=== PATIENT | female | born 1985 | race Caucasian/White ===

== ENCOUNTER 2017-04-04 12:13 | Day surgery (SDC) | payer BC ==
[2017-04-04] MEDS ORDERED: Iohexol 240 (50 ml) ONE ×2 (12:52→15:18)
[2017-04-04 13:22] VITALS: RESP 16
[2017-04-04] MEDS ORDERED: Indomethacin 50 MG Suppository PR ONE (13:28)
[2017-04-04] MEDS ORDERED: Sevoflurane - Inhalation Anesthetic Liq (250 ml) ONE (13:42)
[2017-04-04] MEDS ORDERED: Propofol 10 mg/ml Inj (20 ML) ONE (13:43)
[2017-04-04] MEDS ORDERED: Succinylcholine 200 mg/10 ml Inj IV ONE (13:43)
[2017-04-04] MEDS ORDERED: ePHEDrine 50 mg/ml Inj ONE (13:59)
[2017-04-04 14:51] VITALS: TEMP 98.1
[2017-04-04] MEDS ORDERED: Sodium Chloride 0.9% 1,000 ML IV SCH (15:00)
[2017-04-04 15:36] VITALS: BP 124/80; PULSE 73; O2SAT 99
--- NOTE | 2017-04-05 09:34 | RAD ---
PROCEDURE: ERCP HISTORY: ? CBD OBST COMPARISON: TECHNIQUE: Fluoroscopy was provided in the endoscopy suite. 59 seconds of fluoro time were use. Three images were obtained FINDINGS: The study shows passage of a balloon catheter through the common duct IMPRESSION: As above
== END 2017-04-04 15:50 | disposition short-term general hospital (02) ==
LOC: ENDO 12:13
PROVIDERS: ATTEND Internal Medicine
DX: K80.50 Calculus of bile duct without cholangitis or cholecystitis without obstruction (principal)
CPT/HCPCS: 43264; 74330; C1726; J0330; J2405; J2704; J3010; J7040 ×2; Q9966